=== PATIENT | female | born 1940 | race Caucasian/White ===

== ENCOUNTER 2020-01-06 19:25 | Inpatient (IN) | payer MEDICARE, OTHER ==
[~2020-01-06] VITALS: Ht 152.4 cm; Wt 51.7 kg
[2020-01-06] MEDS ORDERED: VISTARIL25 M2 PO (22:30)
[2020-01-06] MEDS ORDERED: VITAMIN D32000 UNI1 PO (22:31)
[2020-01-06] MEDS ORDERED: THEREMS-M1 EACH PO (22:31)
[2020-01-06] MEDS ORDERED: VERAPAMIL HCL40 MG PO (22:32)
[2020-01-06] MEDS ORDERED: XALATAN 0.005%2.5 ML INTRAOC (22:34)
[2020-01-06] MEDS ORDERED: LEVOTHYROXINE75 MCG PO (22:35)
--- NOTE | 2020-01-07 10:02 | NUR ---
DAISY BALDERAS a 79 year old F admitted via wheel chair from the ADMITTING as a voluntary admission. Arrived on unit at 1002. ALLERGIES: IODINE, EXELON AND CODEINE. Vital signs are: 97.4-88-16 150/71. The client signed the following forms with stated understanding: Authorization For The Release of Medical Information, Clothing List, Consent to Voluntary Admission and Hospitalization, Consent and Release Forms/Receipt of Rights, Acknowledgement of Advance Directive Information, Behavioral Health Consent Form, and Informed Consent of Medications. Admitted under the services of Dr. SAMMI ZEPEDA,[facility]. A search was conducted and hazardous articles were removed. Client was oriented to the unit. DELFINA ENAMORADO
[2020-01-07 11:00] VITALS: BP 150/71
--- NOTE | 2020-01-07 11:16 | NUR ---
SPOKE WITH DR LAKHANI AT [phone] RE: PT ADMISSION AND CONSULT NEEDED FOR MEDICAL MANAGEMENT PER DR PALACIOS CONSULT UNDER DR RASCON.
--- NOTE | 2020-01-07 11:41 | NUR ---
AM ASSESSMENT PT HAS JUST ARRIVED ON THE UNIT AND ASSESSMENT WAS ATTEMPTED. PT HAD SOME THOUGHT BLOCKING WITH SOME TEARFUL EPISODES. PT WAS EXPERIENCING VISUAL HALLUCINATIONS REACHING FOR AN UNSEEN OBJECT AND ASKING, "ARE YOU HOLDING THAT OR AM I?" WHEN ASKED WHAT SHE WAS SEEING, PT COULD NOT. PT WAS COOPERATIVE BUT UNABLE TO ANSWER MOST OF THE QUESTIONS.
[2020-01-07 12:55] LABS: BASO % 0.4 % (0.0-1.0); EOS # 0.2 10*3/uL (0.0-0.4); EOS % 2.3 % (1.0-4.0); HEMATOCRIT 38.9 % (37.0-47.0); HEMOGLOBIN 12.3 g/dl (12.0-16.0); LYMPH # 2.5 10*3/uL (1.3-4.4); LYMPH % 35.7 % (27.0-41.0); MEAN CELL VOLUME 95.1 fl (81.0-99.0); MEAN CORPUSCULAR HGB 30.1 pg (27.0-31.0); MEAN CORPUSCULAR HGB CONC 31.6 g/dl (33.0-37.0); MEAN PLATELET VOLUME 10.9 fl (9.6-12.3); MONO # 0.7 10*3/uL (0.1-1.0); MONO % 9.4 % (3.0-9.0); NEUT # 3.7 10*3/uL (2.3-7.9); NEUT % 52.1 % (47.0-73.0); PLATELET COUNT AUTOMATED 342 10*3/uL (130-400); RED BLOOD COUNT 4.09 10*6/uL (4.10-5.10); RED CELL DISTRI WIDTH 12.6 % (0-14.5); WHITE BLOOD COUNT 7.1 10*3/uL (4.8-10.8)
[2020-01-07 13:26] LABS: ALBUMIN 3.9 gm/dl (3.1-4.5); ALKALINE PHOSPHATASE 108 U/L (45-117); BUN 23 mg/dl (7-24); CHLORIDE 111 mmol/L (98-107); CREATININE 0.95 mg/dL (0.55-1.02); POTASSIUM 3.5 mmol/L (3.5-5.1); SGOT/AST 20 IU/L (3-35); SGPT/ALT 29 U/L (12-78); SODIUM 144 mmol/L (136-145); TOTAL PROTEIN 7.4 gm/dL (6.4-8.2)
[2020-01-07 15:25] LABS: VITAMIN D, 25-HYDROXY 41.1 ng/mL (30-100)
--- NOTE | 2020-01-07 15:46 | NUR ---
PM GROUP PT IS UNABLE TO ATTEND AND PARTICIPATE IN GROUP THERAPY. PT WAS IN BED RESTING.
--- NOTE | 2020-01-07 17:52 | NUR ---
P: ANXIOUS, CONSTANT MOVEMENT, PACING, ATTEMPTING TO EXIT, HITTING THE ENTRANCE DOOR, INTRUSIVE WITH OTHERS, TEARFUL AND FEARFUL AT TIMES. DEPRESSED MOOD. HAVING VISUAL HALLUCINATIONS STATING "DO YOU HAVE IT?" WITH HANDS IN THE AIR. I: ONE ON ONE, REDIRECTION, DIVERSIONAL ACTIVITIES, OFFERED RESTING PERIODS WHEN BECOMING SLEEPING, ENCOURAGED PATEINT TO EAT MEALS. R: SOME EFFECTIVE. PATIENT IS ALERT TO PERSON AND PLACE ([place]) WITH CONFUSION. SHORT ATTENTION SPAN. LONG/SHORT TERM MEMORY DEFICITS. MOOD IS DEPRESSED. NO VOICED STATEMENT OF HI/SI OR PAIN. RESPONDING TO INTERNAL STIMULI. 1 PERSON ASSIST WITH ACTIVITIES OF DAILY LIVING, CONTINENT OF BOWEL AND BLADDER. SET UP FOR MEALS, INTAKE ARE POOR WITH MUCH ENCOURAGEMENT. 200 CC OF ENSURE CONSUMED. NO AGGRESSION OBSERVED. MEDICATION COMPLAINT. Q 15 MINUTE SAFETY CHECK. P: CONTINUE TO MONITOR FOR AGGRRESSION, MEAL INTAKES, SLEEPING, HALLUCINATIONS. PROVIDE ONE ON ONE, REDIRECTION/ORIENTATION AND DIVERSIONAL ACTIVITIES NEEDED.
[2020-01-07 19:44] VITALS: BP 114/83
--- NOTE | 2020-01-07 20:30 | NUR ---
EVENING/LEISURE SKILLS PT IN ATTENDANCE ON AND OFF. PT WANDERING UNIT AT THIS TIME AND EXPRESSES NO AGITATION OR AGGRESSION AT THIS TIME.
--- NOTE | 2020-01-07 21:58 | NUR ---
P--CONFUSED, ANXIOUS I--TRIED TO GET CLIENT TO SIT AND EAT. NO EYE CONTACT. NONSENSICLE SPEECH. DIFFICULT TO REDIRECT SHE PULLS AWAY. MEDICATION PROVIDED WITHOUT SUCCESS. REFUSES TO LET STAFF LOCK UP RINGS ON HER LEFT HAND. R- SPIT PILLS OUT. REFUSED SNACK, UNABLE TO HOLD CONVERSATION. WANDERING IN AND OUT OF PEERS ROOMS. P--MONITOR FOR CHANGES IN BEHAVIOR/MOOD/ MONITOR Q 15 MINUTES AND PRN FOR SAFETY. PROVIDE EMOTIONAL SUPPORT
--- NOTE | 2020-01-08 03:24 | NUR ---
SHOWER GIVEN WITH HAIR WASHING. RINGS REMOVED AND TAKEN TO SUPERVISORS OFFICE. SLEEPING INTERMITTENTLY
--- NOTE | 2020-01-08 05:59 | NUR ---
24 HR chart check completed.
[2020-01-08 07:07] LABS: CHOLESTEROL 207 mg/dL (<200); HDL CHOLESTEROL 67 mg/dl (40-60); LDL CHOLESTEROL 121 mg/dL (9-159); TRIGLYCERIDES 94 mg/dl (<150); VLDL CHOLESTEROL 19 mg/dL (6-40)
[2020-01-08 08:00] VITALS: BP 140/80
--- NOTE | 2020-01-08 09:06 | NUR ---
DR ARGUELLES ON UNIT TO ASSESS PT, UPDATE PROVIDED.
--- NOTE | 2020-01-08 09:53 | NUR ---
TREATMENT PLAN MEETING WAS HELD WITH DR. CHAPA, LETHA CAMARA, RN, AT, DIRECTOR OF DIRECT MARKETING-S AND BUSINESS SERVICES SPECIALIST SALES. PLAN FOR DISCHARGE NEXT WEEK. DR. CHAPA ASKED FOR PASRR TO BE COMPLETED. WILL FOLLOW WITH THE [facility] [address] TODAY TO DISCUSS DISCHARGE PLANNING.
--- NOTE | 2020-01-08 10:29 | NUR ---
Attempted to engage pt in conversation this AM for completion of assessment. Pt did not respond appropriately to any questions. Pt did not want to be still sitting in a room but only wanted to wander the nguyen.
--- NOTE | 2020-01-08 10:32 | NUR ---
Family meeting held via the phone with pt's daughter/DPOAHC Dannielle Tiera. Dannielle stated that pt's change in behaviors began approximately 3 weeks ago. Pt has been on an anti-depressant for approximately 30 years but about a month ago pt became very weepy. There was a med change at that time. After the med change, pt became panicked and fearful pacing in the AL and having outbursts. Dannielle stated that pt normally wanders but not the frantic pacing that pt has been recently displaying. She also stated that pt is normally very gentle without behavioral outbursts. Discussed pt's stay at [facility]. Confirmed that Dannielle is wanting pt to return to The [facility] at [address] at time of [facility] discharge. Dannielle provided additional pt history. 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
--- NOTE | 2020-01-08 11:43 | NUR ---
AM GROUP PT WAS PRESENT FOR MORNING GROUP THERAPY SEATED IN A NAINA CHAIR WITH THE TRAY ON. PT WAS DROWSY AND UNABLE TO PARTICIPATE. PT LEVEL OF CONFUSION AND COGNITIVE IMPAIRMENT AT THIS TIME IS HIGH. PT EXHIBITED NO AGITATION OR AGGRESSION WHILE IN THE DAYROOM.
--- NOTE | 2020-01-08 15:42 | NUR ---
PM GROUP PT WAS PRESENT FOR AFTERNOON GROUP THERAPY SEATED IN A NAINA CHAIR WITH THE TRAY ON. PT WAS IN AND OUT OF SLEEP AT THE BEGINNING BUT BEGAN FIDGETING WITH THE TRAY. PT WAS GIVEN AN ACTIVITY BUT WAS UNABLE TO DO IT DUE TO COGNITIVE IMPAIRMENT. PT EXHIBITED NO AGGRESSION BUT WAS BECOMING INCREASINGLY UPSET WITH THE TRAY.
[2020-01-08 19:48] VITALS: BP 142/72
--- NOTE | 2020-01-09 00:30 | NUR ---
P-CONFUSION I-PROVIDED 1:1 WITH THERAPEUTIC INTERVENTIONS. REORIENTED AND PRESENTED WITH REALITY. ENCOURAGE MEDICATION COMPLIANCE AND EDUCATE. MONITOR SLEEP. R-PT ALERT TO SELF, ISOLATIVE. SPEECH NONSENSICAL WITH INTERACTIONS. MILD IRRITABILITY NOTED DURING MEDICATION PASS BUT OTHERWISE CALM. MEDICATION COMPLIANT WITH ENCOURAGEMENT WHEN CRUSHED IN PUDDING. UNABLE TO EDUCATE DUE TO COGNITION. NO NOTED RESPONDING TO INTERNAL STIMULI. PT VOICES NO SI/HI OR PAIN. PT ASSIST X1 WITH CARE. INCONTINENT/CONTINENT OF BOWEL AND BLADDER. CURRENTLY LAYING DOWN WITH EYES CLOSED, RESPIRATIONS EASY AND REGULAR, NO SIGNS OR SYMPTOMS OF DISTRESS NOTED. P-CONTINUE TO MONITOR MOOD AND BEHAVIORS. MAINTAIN Q 15 MIN CHECKS.
--- NOTE | 2020-01-09 04:18 | NUR ---
24 HOUR CHART CHECK COMPLETED.
--- NOTE | 2020-01-09 05:30 | NUR ---
PATIENT OBSERVED ON Q 15 MIN CHECKS TO HAVE SLEPT APPROX 4 HOURS INTERRUPTED. NO SIGNS OR SYMPTOMS OF DISTRESS NOTED.
[2020-01-09 08:00] VITALS: BP 145/69
--- NOTE | 2020-01-09 09:00 | NUR ---
TREATMENT PLAN MEETING WAS HELD WITH DR. CHAPA, RN, AT, [facility] AND COUNSELING SERVICES DIRECTOR. PLAN FOR DISCHARGE AT THE END OF NEXT WEEK. PT. WILL RETURN TO THE [facility] AT [facility].
--- NOTE | 2020-01-09 11:48 | NUR ---
AM GROUP PT WAS PRESENT FOR MORNING GROUP THERAPY BUT IS UNABLE TO PARTICIPATE DUE TO COGNITIVE IMPAIRMENT. PT ATTEMPTED CONVERSATION BUT SPEECH IS LOW AND NONSENSICAL. PT EXHIBITED NO AGITATION OR AGGRESSION WHILE IN GROUP.
--- NOTE | 2020-01-09 17:36 | NUR ---
DEPAKOTE DOSE VERIFIED WITH : DEPAKOTE SPRINKLES 250MG IN AM AND 500MG AT HS. WITNESSED BY 2ND RN TERE.ELINOR.
[2020-01-09 20:00] VITALS: BP 148/78
--- NOTE | 2020-01-09 22:05 | NUR ---
PT STRAIGHT CATHED USING STERILE TECHNIQUE FOR UA ORDERED BY PHYSICIAN . PT TOLERATED PROCEDURE WELL.
[2020-01-09 22:32] LABS: BILIRUBIN NEGATIVE (NEGATIVE); BLOOD TRACE-INTACT (NEGATIVE); CLARITY CLEAR (CLEAR); COLOR YELLOW (YELLOW); GLUCOSE NEGATIVE (NEGATIVE); KETONE 3+ (NEGATIVE); LEUKO ESTERASE NEGATIVE (NEGATIVE); NITRITE NEGATIVE (NEGATIVE); UROBILINOGEN 0.2 E.U./dl (0.2-1.0)
--- NOTE | 2020-01-09 22:32 | NUR ---
PT SOMNOLENT THIS HS, EASILY AROUSABLE VIA TACTILE AND VERBAL STIMULI, CONFUSED, NONSENSICAL. PT REFUSING HS MEDICATIONS OR SNACK, UNABLE TO REDIRECT DUE TO COGNITION. VITALS WNL, NO OVERT DISTRESS NOTED. ALL NEEDS ANTICIPATED BY STAFF, MILD AGITATION NOTED DURING HOC, ASSIST X2. NO COMBATIVE OR ADVERSE BEHAVIORS OBSERVED. PT RESTING QUIETLY AT THIS TIME, RESPIRATIONS EASY AND REGULAR, NO C/O DISCOMFORT NOTED. PLAN IS TO CONTINUE TO MONITOR MOOD AND BEHAVIORS. MAINTAIN Q 15 MIN CHECKS AND PRN FOR SAFETY.
--- NOTE | 2020-01-10 05:24 | NUR ---
PATIENT OBSERVED ON Q 15 MIN SAFETY CHECKS TO HAVE SLEPT APPROX 7 HOURS WITH BRIEF AWAKENINGS DURING STAFF CHECKS AND REPOSITIONING. INCONTINENT CARE PROVIDED WITHOUT DIFFICULTY. NO SIGNS OR SYMPTOMS OF DISTRESS NOTED.
[2020-01-10 07:40] VITALS: BP 159/88
[2020-01-10 08:12] LABS: BASO # 0.1 10*3/uL (0.0-0.1); BASO % 0.4 % (0.0-1.0); EOS # 0.1 10*3/uL (0.0-0.4); EOS % 0.9 % (1.0-4.0); HEMATOCRIT 36.4 % (37.0-47.0); HEMOGLOBIN 11.9 g/dl (12.0-16.0); LYMPH # 1.5 10*3/uL (1.3-4.4); MEAN CELL VOLUME 94.5 fl (81.0-99.0); MEAN CORPUSCULAR HGB 30.9 pg (27.0-31.0); MEAN CORPUSCULAR HGB CONC 32.7 g/dl (33.0-37.0); MEAN PLATELET VOLUME 11.1 fl (9.6-12.3); MONO # 1.2 10*3/uL (0.1-1.0); MONO % 9.4 % (3.0-9.0); NEUT # 9.7 10*3/uL (2.3-7.9); PLATELET COUNT AUTOMATED 341 10*3/uL (130-400); RED BLOOD COUNT 3.85 10*6/uL (4.10-5.10); RED CELL DISTRI WIDTH 12.7 % (0-14.5); WHITE BLOOD COUNT 12.6 10*3/uL (4.8-10.8)
[2020-01-10 08:28] LABS: ALBUMIN 3.3 gm/dl (3.1-4.5); ALKALINE PHOSPHATASE 97 U/L (45-117); BUN 23 mg/dl (7-24); CHLORIDE 113 mmol/L (98-107); CREATININE 0.87 mg/dL (0.55-1.02); POTASSIUM 3.5 mmol/L (3.5-5.1); SGOT/AST 19 IU/L (3-35); SGPT/ALT 24 U/L (12-78); SODIUM 144 mmol/L (136-145); TOTAL PROTEIN 6.8 gm/dL (6.4-8.2)
--- NOTE | 2020-01-10 08:51 | NUR ---
AM DEPAKOTE DOSE DECREASED TO 125MG PER H.CLEVE PMHNP-BC
--- NOTE | 2020-01-10 10:13 | NUR ---
TREATMENT PLAN MEETING WAS HELD WITH LETHA CAMARARN, AT, FILLER SHREDDER-S AND ULTIMATE HOOPS SCOREBOARD OPERATOR. PLAN FOR DISCHARGE NEXT WEEK, POSSIBLE MONDAY WITH RETURN TO THE [facility] AT [facility].
--- NOTE | 2020-01-10 10:37 | NUR ---
SPOKE WITH FRANCISCO THE NURSE IN THE MEMORY CARE UNIT AT THE [facility] AT [facility]. NOTIFIED OF PLANS TO DISCHARGE NEXT WEEK. CLINICAL UPDATES FAXED TO FACILITY ATTN; NURSE [phone].
--- NOTE | 2020-01-10 12:02 | NUR ---
UPDATED DOCTOR KINDRA WITH LABS AND URINE RESULTS NO NEW ORDERS AT THIS TIME
--- NOTE | 2020-01-10 12:31 | NUR ---
AM GROUP PT WAS PRESENT FOR MORNING GROUP THERAPY RECLINED IN A NAINA CHAIR SLEEPING. PT WOKE TOWARDS THE END OF GROUP DISTRAUGHT AND TRYING TO CLIMB OUT OF THE CHAIR. MHW TOOK PT AND WALKED HER IN THE HALLWAY. PT WAS COMFORTED AND CALMED.
--- NOTE | 2020-01-10 15:27 | NUR ---
P- ANXIOUS MOOD - WITH PERIODS OF YELLING OUT I-1;1, TALK WITH PT - OFFER FLUIDS AND SNACK, ENCOURAGE MEDICATION COMPLIANCE,MONITOR Q 15 MIN SAFETY CHECKS WITH BEHAVIOR INTERVENTION,AMBULATED PT TO REDUCE ANXIETY R- PT IS RELAXED WITH 1;1 AND FLUIDS AND AMBULATION P- CONTINUE 1;1, OFFER FLUIDS ,SNACKS,AMBULATION Q15MIN AFETY CHECKS,MEDICATION COMPLIANCE SEE [facility] FLOWSHEETFOR SPECIFIC MONITORING
--- NOTE | 2020-01-10 15:33 | NUR ---
PM GROUP PT WAS PRESENT FOR AFTERNOON GROUP THERAPY BUT IS UNABLE TO PARTICIPATE AT THIS TIME DUE TO COGNITIVE IMPAIRMENT. PT EXHIBITED NO AGITATION OR AGGRESSION WHILE IN GROUP
[2020-01-10 20:00] VITALS: BP 110/52
--- NOTE | 2020-01-11 04:31 | NUR ---
P-CONFUSION, TEARFUL, ISOLATIVE I-REDIRECTION WITH THERAPEUTIC INTERVENTIONS AND PRESENT REALITY. EDUCATE AND ENCOURAGE MEDICATION COMPLIANCE R-PATIENT MEDICATION COMPLIANT WITH ENCOURAGEMENT. PATIENT WITH NONSENSICAL SPEECH THROUGHOUT SHIFT. PATIENT WITH BRIEF EPSISODES OF TEARFULLNESS. PATIENT PROVIDED NOURISHEMENT AND FLUIDS AT HS. PATIENT WITH NO SUICIDAL OR HOMICIDAL IDEATIONS. PATIENT WITH NO HALLUCINATIONS OR DELUSIONS. P-CONTINUE TO ENCOURAGE MEDICATION COMPLIANCE, CONTINUE TO ENCOURAGE REALITY, ENCOURAGE GROUP THEAPY WHILE AWAKE
--- NOTE | 2020-01-11 06:14 | NUR ---
PATIENT SLEPT 8 HOURS UNINTERRUPTED SLEEP THROUGHOUT SHIFT. Q 15 MINUTE CHECKS MAINTAINED. 24 HR chart check completed. PATIENT SKIN ASSESSED AT HS WITH NO AREAS NOTED
[2020-01-11 08:00] VITALS: BP 111/69
--- NOTE | 2020-01-11 11:12 | NUR ---
P-NON SENSABLE SPEECH I- 1;1 ,ENCOURAGE MEDICATION COMPLIANCE, ENCOURAGE GROUP ATTENDANCE R- INTERACTIVE WITH STAFF AND PEERS PARTICIPATES AND ATTENDS GROUP P-CONTINUE WITH 1;1 MEDICATION COMPLIANCE, ENCOURAGE ATTENDANCE TO GROUP AND PARTICIPATION Q 15 MIN SAFETY CHECKS SEE [facility] NOTES FOR BEHAVIOR MONITORING
--- NOTE | 2020-01-11 11:37 | NUR ---
AM GROUP/LEISURE SKILLS PT IN ATTENDNACE BUT RESTING ENTIRE TIME.
--- NOTE | 2020-01-11 15:50 | NUR ---
PM GROUP/LEISURE SKILLS PT RESTING IN CHAIR AT THIS TIME.
[2020-01-11 20:00] VITALS: BP 125/66
--- NOTE | 2020-01-12 01:52 | NUR ---
P-CONFUSION, ISOLATIVE I-REDIRECTION WITH THERAPEUTIC INTERVENTIONS AND PRESENT REALITY. EDUCATE AND ENCOURAGE MEDICATION COMPLIANCE R-PATIENT MEDICATION COMPLIANT WITHOUT DIFFICULTY. PATIENT WITH NONSENSICAL SPEECH THROUGHOUT SHIFT. PATIENT REFUSED NOURISHEMENT AT HS BUT PROVIDED FLUIDS. PATIENT WITH NO SUICIDAL OR HOMICIDAL IDEATIONS. PATIENT WITH NO HALLUCINATIONS OR DELUSIONS. PATIENT WITH INCREASED ANXIETY AT TIMES AND ATTEMPTING TO GET UP WITHOUT ASSISTANCE. P-CONTINUE TO ENCOURAGE MEDICATION COMPLIANCE, CONTINUE TO ENCOURAGE REALITY, ENCOURAGE GROUP THEAPY WHILE AWAKE
--- NOTE | 2020-01-12 06:13 | NUR ---
PATIENT SLEPT 8 HOURS UNINTERRUPTED THROUGHOUT SHIFT. Q 15 MINUTE CHECKS MAINTAINED. 24 HR chart check completed. NO CHANGE IN SKIN INTEGRITY ON ASSESSMENT THIS SHIFT
[2020-01-12 07:53] VITALS: BP 110/64
[2020-01-12 10:41] LABS: BASO % 0.3 % (0.0-1.0); EOS # 0.1 10*3/uL (0.0-0.4); EOS % 1.7 % (1.0-4.0); HEMATOCRIT 38.8 % (37.0-47.0); HEMOGLOBIN 12.3 g/dl (12.0-16.0); LYMPH # 1.1 10*3/uL (1.3-4.4); LYMPH % 16.8 % (27.0-41.0); MEAN CELL VOLUME 93.9 fl (81.0-99.0); MEAN CORPUSCULAR HGB 29.8 pg (27.0-31.0); MEAN CORPUSCULAR HGB CONC 31.7 g/dl (33.0-37.0); MEAN PLATELET VOLUME 11.2 fl (9.6-12.3); MONO # 0.7 10*3/uL (0.1-1.0); MONO % 11.5 % (3.0-9.0); NEUT # 4.4 10*3/uL (2.3-7.9); NEUT % 69.4 % (47.0-73.0); PLATELET COUNT AUTOMATED 348 10*3/uL (130-400); RED BLOOD COUNT 4.13 10*6/uL (4.10-5.10); RED CELL DISTRI WIDTH 12.3 % (0-14.5); WHITE BLOOD COUNT 6.4 10*3/uL (4.8-10.8)
[2020-01-12 10:44] LABS: ALBUMIN 3.2 gm/dl (3.1-4.5); ALKALINE PHOSPHATASE 94 U/L (45-117); BUN 20 mg/dl (7-24); CHLORIDE 112 mmol/L (98-107); POTASSIUM 3.5 mmol/L (3.5-5.1); SGOT/AST 17 IU/L (3-35); SGPT/ALT 25 U/L (12-78); SODIUM 144 mmol/L (136-145); TOTAL PROTEIN 6.9 gm/dL (6.4-8.2)
--- NOTE | 2020-01-12 11:13 | NUR ---
P- ZERO BEAHVIOR I- 1;1 ENCOURAGE GROUP ATTENDENCE AND PARTICIPATION Q15 MIN SAFETY CHECKS R- RESPONDS SLOW TO STAFF AND PEERS 1;1 ATTENDS GROUP P- CONTINUE 1;1 Q 15 MIN SAFETY CHECKS GIVE PT TIME TO RESPOND SEE [facility] NOTES FOR BEHAVIOR MONITORING
--- NOTE | 2020-01-12 12:02 | NUR ---
AM GROUP/EXERCISE/BRAIN GAMES PT IN ATTENDANCE BUT RESTING IN RECLINER WITH BABY DOLL ENTIRE TIME.
[2020-01-12 20:00] VITALS: BP 174/53
--- NOTE | 2020-01-13 03:53 | NUR ---
PATIENT ALERT WITH CONFUSION. PATIENT WITH SHORT TERM AND DOMESTIC VIOLENCE COUNSELOR MEMORY DEFICITS. PATIENT WITH NO RESPIRTATORY DISTRESS. PATIENT WITH NONSENSICAL SPEECH AT TIMES DURING SHIFT. PATIENT WITH NO HOMICIDAL OR SUICIDAL IDEATIONS. PATIENT WITH NO HALLUCINATIONS OR DELUSIONS. PATIENT REFUSED NOURISHEMENT AT HS BUT PROVIDED FLUIDS. PATIENT MEDICATION COMPLIANT AT HS. PATIENTS WITH NO BEHAVIORS AT THIS TIME. SEE [facility] FLOW SHEET FOR SPECIFIC MONITORING.
--- NOTE | 2020-01-13 05:40 | NUR ---
PATIENT SLEPT 8 HOURS OF UNINTERRUPTED SLEEP THROUGHOUT SHIFT. Q 15 MINUT CHECKS MAINTAINED. 24 HR chart check completed. NO CHANGES IN SKIN INTEGRITY THIS SHIFT
[2020-01-13 08:00] VITALS: BP 142/62
--- NOTE | 2020-01-13 09:40 | NUR ---
TREATMENT PLAN MEETING WAS HELD WITH LETHA CAMARA RN, CORE MOUNTER-S AND RETAIL SALES ADVISOR. PLAN FOR DISCHARGE WHEN STABLE WITH RETURN TO THE [facility] AT [facility].
--- NOTE | 2020-01-13 09:50 | NUR ---
DR. ALY ON UNIT TO ASSESS PATIENT.
--- NOTE | 2020-01-13 11:12 | NUR ---
P: WITHDRAWN WITH FLAT AFFECT, POOR PO INTAKES. I: ONE ON ONE, ENCOURAGE INTERACTION WITH STAFF, EATING MEALS WITH STAFF ASSISTANCE. R: PATIENT RESTING IN NAINA WITH EYES CLOSED WHILE IN GROUP, WATCHING MOVIE. PATIENT DID NOT WANT TO EAT. MUCH ASSISTANCE WITH ENSURE DRINK. PATIENT DRANK ALL OF ENSURE, 240CC. PATIENT IS ALERT TO PERSON WITH CONFUSION. LONG/SHORT TERM MEMORY DEFICITS. 1 PERSON ASSIST WITH ACTIVITIES OF DAILY LIVING. INCONTINENT OF BOWEL AND BLADDER. SET UP FOR MEALS, WITH STAFF ASSISTANCE. MEDICATION COMPLAINT. Q 15 MINUTE SAFETY CHECKS MAINTAINED. NO ANXIETY OR AGGRESSION OBSERVED. P: CONTINUE TO MONITOR FOR AGGRESSION, MEDICATION COMPLIANCE, MOOD, SLEEPING PATTERN AND MEAL INTAKES. PROVIDE ONE ON ONE, REDIRECTION, ENCOURAGEMENT OF MEALS AND FLUIDS. ENCOURAGE INTERACTION WITH STAFF AND OTHER PATIENTS.
[2020-01-13 14:01] VITALS: BP 124/69
--- NOTE | 2020-01-13 15:09 | NUR ---
Shift chart check completed.
[2020-01-13 19:35] VITALS: BP 146/62
--- NOTE | 2020-01-13 21:19 | NUR ---
24 HR chart check completed.
--- NOTE | 2020-01-13 21:30 | NUR ---
P-CONFUSION, ANXIOUS I-REORIENT, PROVIDE VERBAL REASSURANCE, ASSIST WITH PHYSICAL NEEDS, ADMINISTER MEDS, MONITOR SLEEP R-ALERT TO PERSON ONLY, MILD ANXIETY, CALMS WITH REASSURANCE, REQUIRES 2 STAFF ASSISTS, INCONTINENT OF URINE. REQUIRED ENCOURAGEMENT TO TAKE FLUIDS & EAT SNACK. COMPLIANT TAKING MEDS CRUSHED & MIXED IN APPLESAUCE. P-CONTINUE TO MONITOR. PROVIDE PHYSICAL ASSISTANCE & EMOTIONAL SUPPORT NEEDED.
--- NOTE | 2020-01-14 06:08 | NUR ---
PT HAS SLEPT PAST 5 WITH INTERMITTENT AWAKENINGS. SLEPT APPX 5 HOURS
[2020-01-14 08:05] VITALS: BP 124/60
--- NOTE | 2020-01-14 09:00 | NUR ---
TREATMENT PLAN MEETING WAS HELD WITH DR. CHAPA, LETHA CAMARA, RN, AT, TITLE SUPERVISOR-S AND CERAMIC WORKER. PLAN FOR DISCHARGE MONDAY. PT. WILL RETURN TO THE [facility].
--- NOTE | 2020-01-14 11:35 | NUR ---
AM GROUP/EXERCISE AND [place] PT WAS PRESENT FOR MORNING GROUP THERAPY BUT IS UNABLE TO PARTICIPATE AT THIS TIME DUE COGNITIVE IMPAIRMENT. PT HAD A DRINK OF WATER AND SAT AND OBSERVED.
--- NOTE | 2020-01-14 11:36 | NUR ---
Received a voicemail message from pt's daughter/DPOAHC Dannielle Tiera expressing concern about pt's current status. Returned the message leaving a voicemail for Dannielle informing her that this abstract writer is requesting that Dr Benjamin or Samantha Amado CELLULAR BIOLOGIST contact Dannielle to discuss plan for pt.
--- NOTE | 2020-01-14 14:14 | NUR ---
PATIENT HAS BEEN ASSISTED TO BATHROOM 3-4 TIMES DUE TO REQUEST AND INSISTING ON NEEDED TO URINATE. EACH TIME PATIENT DID NOT VOID, HAVING URENCY WITHOUT VOIDING, NO COMPLAINTS OF BURNING. TEMP 97.5. DR. PATEL NOTIFIED. BLADDER SCAN PER REQUEST. NO CC OF URINE NOTED. RENOTIFIED DR. PATEL. NO ORDER FOR UA/C&S. URINE COLLECTED VIA CLEAN CATCH AND SENT TO LAB.
[2020-01-14 14:19] LABS: BILIRUBIN NEGATIVE (NEGATIVE); BLOOD NEGATIVE (NEGATIVE); CLARITY CLOUDY (CLEAR); COLOR YELLOW (YELLOW); GLUCOSE NEGATIVE (NEGATIVE); KETONE 1+ (NEGATIVE); SPECIFIC GRAVITY 1.015 (1.005-1.030)
[2020-01-14 14:20] LABS: LEUKO ESTERASE 1+ (NEGATIVE); NITRITE NEGATIVE (NEGATIVE); PH 6.5 (5.0-9.0); UROBILINOGEN 0.2 E.U./dl (0.2-1.0)
[2020-01-14 14:25] LABS: RBC 0-2 rbc/hpf (0-2); WBC 16-20 wbc/hpf (0-5)
[2020-01-14 14:26] LABS: BACTERIA 4+; MUCOUS TRACE
--- NOTE | 2020-01-14 15:36 | NUR ---
PM GROUP/CRAFTS PT DID NOT ATTEND AFTERNOON GROUP THERAPY. PT WAS IN BED RESTING.
--- NOTE | 2020-01-14 15:53 | NUR ---
DR. PATEL NOTIFIED OF UA RESULTS.
--- NOTE | 2020-01-14 15:55 | NUR ---
P: ANXIOUS AT TIMES. I: ONE ON ONE, REDIRECTION NEEDED R: EFFECTIVE. PATIENT IS ALERT TO PERSON WITH CONFUSION. LONG/SHORT TERM MEMORY DIFICITS. MOOD IS ANXIOUS WITH FLAT AFFECT. NO RESPONSE TO INTERNAL STIMULI OBSERVED. NO VOICED STATEMENT OF HI/SI OR PAIN. MEDICATION COMPLAINT. Q 15 MINUTE SAFETY CHECKS MAINATINED. ONE PERSON ASSIST WITH ACTIVITIES OF DAILY LIVING, CONTINENT OF BOWEL AND BLADDER. SET UP FOR MEALS. MUCH ENCOURAGEMENT TO EAT AND DRINK. POOR INTAKES. UP IN MERRIWALKER AMBULATING IN HALLWAY. FREQUENT REST PERIODS OFFERED. NO AGGRESSION OBSERVED. P: CONTINUE TO MONITOR MOOD, MEAL INAKES AND SLEEPING PATTERN. PROVIDE ONE ON ONE, REDIRECTION, ENCOURAGE MEAL INTAKE AND ASSIST AND ENCOURAGE PATIENT TO REST NEEDED.
[2020-01-14 19:39] VITALS: BP 126/62
--- NOTE | 2020-01-14 19:51 | NUR ---
24 HR chart check completed.
--- NOTE | 2020-01-14 21:35 | NUR ---
P-CONFUSION, ANXIOUS I-REORIENT, REDIRECT, ASSIST WITH PHYSICAL NEEDS, ADMINISTER MEDS, MONITOR SLEEP R-ALERT TO PERSON ONLY, MILD ANXIETY, CALMS WITH REASSURANCE, REQUIRES 2 STAFF ASSISTS, INCONTINENT OF URINE. REQUIRED ENCOURAGEMENT TO TAKE FLUIDS & EAT SNACK. COMPLIANT TAKING MEDS CRUSHED & MIXED IN APPLESAUCE. HAS MOVED ABOUT THE UNIT INDEPENDENTLY WITH A MERRY WALKER BUT REQUIRES REDIRECTION. P-CONTINUE TO MONITOR. PROVIDE PHYSICAL ASSISTANCE & EMOTIONAL SUPPORT NEEDED.
--- NOTE | 2020-01-15 06:12 | NUR ---
PT HAS SLEPT FOR 8 HOURS
[2020-01-15 07:40] VITALS: BP 117/63
--- NOTE | 2020-01-15 08:30 | NUR ---
TREATMENT PLAN MEETING WAS HELD WITH DR. CHAPA, LETHA CAMARA, RN, AT, COMBINER OPERATOR-S AND RESIN REMOVER. PLAN FOR DISCHARGE MONDAY WITH RETURN TO THE [facility] AT [facility].
--- NOTE | 2020-01-15 11:33 | NUR ---
AM GROUP/MUSIC AND ART PT WAS PRESENT FOR MORNING GROUP THERAPY BUT IS UNABLE TO PARTICIPATE AT THIS TIME DUE TO COGNITIVE IMPAIRMENT. PT SAT AT A TABLE NAPPING.
--- NOTE | 2020-01-15 13:17 | NUR ---
CLINICAL UPDATES FAXED TO THE [facility] [address] ATTN: JUANY GARAY NURSE [phone].
--- NOTE | 2020-01-15 14:40 | NUR ---
Family meeting held on 01/14/20 with pt's daughter Dannielle Mott and her . Discussed pt's status during past few days and currently. Pt's family expressed concern about understanding the course of pt's treatment. Informed them that Samantha Amado REVERBERATORY SKIMMER would be phoning Dannielle to discuss current medications and plan of care. Pt's family expressed concern that pt was not yet stable to return to the assisted living. Discussed this further and reassured pt's family that their concerns would be discussed in treatment team tomorrow.
--- NOTE | 2020-01-15 15:35 | NUR ---
PM GROUP/CRAFTS PT DID NOT ATTEND AFTERNOON GROUP THERAPY. PT WAS IN BED RESTING.
--- NOTE | 2020-01-15 16:06 | NUR ---
SPOKE WITH JUANY THE NURSE AT THE [facility]. THE [facility] FEELS THAT PATIENT SHOULD NOT DISCHARGE MONDAY AND SHOULD BE DISCHARGED NEXT WEEK DUE TO UPDATES THAT WERE FAXED TO THEM, PATIENT DID NOT SHOW IMPROVEMENT AND FAMILY HAS CONCERNS ABOUT DISCHARGING TOO EARLY AND PATIENT ENDING UP READMIITED TO THE HOSPITAL.
--- NOTE | 2020-01-15 18:54 | NUR ---
DR. AGUILAR NOTIFIED OF UA RESULTS.
[2020-01-15 19:26] VITALS: BP 118/64
--- NOTE | 2020-01-15 19:33 | NUR ---
P: ANXIOUS AT TIMES. I: ONE ON ONE, REDIRECTION NEEDED R: EFFECTIVE. PATIENT IS ALERT TO PERSON WITH CONFUSION. LONG/SHORT TERM MEMORY DIFICITS. MOOD IS ANXIOUS WITH FLAT AFFECT. NO RESPONSE TO INTERNAL STIMULI OBSERVED. NO VOICED STATEMENT OF HI/SI OR PAIN. MEDICATION COMPLAINT. Q 15 MINUTE SAFETY CHECKS MAINATINED. ONE PERSON ASSIST WITH ACTIVITIES OF DAILY LIVING, CONTINENT OF BOWEL AND BLADDER. SET UP FOR MEALS. MUCH ENCOURAGEMENT TO EAT AND DRINK. POOR INTAKES. AMBULATING ON UNIT WITH STAFF. FREQUENT REST PERIODS OFFERED. NO AGGRESSION OBSERVED. P: CONTINUE TO MONITOR MOOD, MEAL INAKES AND SLEEPING PATTERN. PROVIDE ONE ON ONE, REDIRECTION, ENCOURAGE MEAL INTAKE AND ASSIST AND ENCOURAGE PATIENT TO REST NEEDED.
--- NOTE | 2020-01-15 21:05 | NUR ---
PT IN DINING ROOM WITH PEERS. NO c/o discomfort. Respirations easy and regular. Vital signs stable. No overt distress. TREVON EPPS
--- NOTE | 2020-01-15 23:12 | NUR ---
CONFUSION REDIRECTION AND REORIENTATION PROVIDED. EDUCATE AND ENCOURAGE MEDICATION COMPLIANCE PATIENT MEDICATION COMPLIANT WITHOUT DIFFICULTY. NO OVERT HALLUCINATIONS OR DELUSIONS. PT MOSTLY DROWSY, ASSISTED TO BED SHORTLY AFTER MEDICATION ADMINISTRATION. CONTINUE TO ENCOURAGE MEDICATION COMPLIANCE, CONTINUE TO REORIENT AND REDIRECT NEEDED. Q15 MIN MONITORING PER POLICY
--- NOTE | 2020-01-16 05:29 | NUR ---
PT SLEPT 7 HOURS THIS SHIFT
[2020-01-16 07:31] VITALS: BP 140/85
--- NOTE | 2020-01-16 08:50 | NUR ---
DR ARGUELLES ON UNIT TO ASSESS PT, UPDATE PROVIDED.
--- NOTE | 2020-01-16 09:00 | NUR ---
TREATMENT PLAN MEETING WAS HELD WITH DR. CHAPA, RN, AT, [facility]-S AND UNMANNED EQUIPMENT OPERATOR. PLAN FOR DISCHARGE NEXT WEEK. PT. TO RETURN TO THE [facility] [address] AT DISCHARGE.
--- NOTE | 2020-01-16 10:26 | NUR ---
P: PT RESTLESS AND PACING AT TIMES, CONFUSION AND SHORT TERM MEMORY DEFICITS I: PROVIDE EMOTIONAL SUPPORT AND 1:1 FOR PT TO VOICE FEELINGS, ENCOURAGE GROUP PARTICIPATION AND SOCIALIZATION, PROVIDE DIVERSIONAL ACTIVITIES, RE-ORIENT AND PRESENT REALITY R: PT ALERT TO PERSON ONLY, CONFUSION AND SHORT TERM MEMORY DEFICITS NOTED PER PT BASELINE. PT REMAINS RESTLESS AT TIMES. PT MED COMPLIANT WITHOUT DIFFICUTLY, UNABLE TO PROVIDE MED EDUCATION D/T COGNITION. PT AMBULATORY THROUGHOUT UNIT, GAIT STEADY. PT CONTINENT OF BOWEL AND BLADDER, EPISODES OF INCONTINENCE NOTED, CARE PROVIDED NEEDED. P: MONITOR PT BEHAVIORS ON Q15 MIN SAFETY CHECKS, ENCOURAGE MED COMPLIANCE, PROVIDE EMOTIONAL SUPPORT AND 1:1 FOR PT TO VOICE FEELINGS, ENCOURAGE GROUP PARTICIPATION AND SOCIALIZATION, PROVIDE DIVERSIONAL ACTIVITES, RE-ORIENT AND PRESENT REALITY WITH EACH INTERACTION AND NEEDED.
--- NOTE | 2020-01-16 15:46 | NUR ---
PM GROUP PT DID NOT ATTEND AFTERNOON GROUP THERAPY.PT WAS IN BED RESTING.
[2020-01-16 20:00] VITALS: BP 112/72
--- NOTE | 2020-01-16 21:50 | NUR ---
Patient alert to person only with confusion noted. Memory deficits noted. No over s/s of any responding to internal stimuli noted at this time. Mood calm and cooperative. Patient isolative to room this evening. Patient compliant with HS medications without any difficulty. Provided 1:1 for emotional support. Redirected/reoriented when needed. Plan to continue to encourage medication compliance. Also continue to offer emotional support and continue to redirect/reorient when needed/appropriate. Q 15 minute safety checks continued and maintained. Will monitor moods/behaviors. See [facility] flowsheet for further documentation.
--- NOTE | 2020-01-17 00:22 | NUR ---
24 HR chart check completed.
--- NOTE | 2020-01-17 05:44 | NUR ---
Patient slept approx. 9 hours throughout shift. Q 15 minute safety checks continued and maintained.
[2020-01-17 07:50] VITALS: BP 110/76
--- NOTE | 2020-01-17 09:00 | NUR ---
TREATMENT PLAN MEETING WAS HELD WITH LETHA CAMARA, RN, AT, [facility]. PLAN FOR DISCHARGE NEXT WEEK. PT. WILL RETURN TO THE [facility].
--- NOTE | 2020-01-17 11:58 | NUR ---
AM GROUP PT DID NOT ATTEND MORNING GROUP THERAPY. PT WAS PROPELLING SELF AROUND THE UNIT IN THE [employer] [facility].
--- NOTE | 2020-01-17 15:00 | NUR ---
Met with pt's daughter Dannielle and provided an update about pt. Informed Dannielle that Vistaril had been prescribed. Dannielle commented that she just doesn't want her mother to be so anxious and appearing fearful.
--- NOTE | 2020-01-17 15:03 | NUR ---
Left a message for Tl at The [facility] [address] requesting a return call to discuss pt using a merrywalker when she returns there. Await return call.
--- NOTE | 2020-01-17 15:40 | NUR ---
PM GROUP PT DID NOT ATTEND AFTERNOON GROUP THERAPY.PT WAS IN THE MERRY WALKER OR IN BED NAPPING.
[2020-01-17 19:56] VITALS: BP 126/70
--- NOTE | 2020-01-18 02:21 | NUR ---
PATIENT ALERT WITH CONFUSION. 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 PATIENT WITH NO RESPIRTATORY DISTRESS. PATIENT WITH NO HOMICIDAL OR SUICIDAL IDEATIONS. PATIENT WITH NO HALLUCINATIONS OR DELUSIONS. PATIENT MEDICATION COMPLIANT AT HS. PATIENTS WITH NO BEHAVIORS AT THIS TIME. SEE [facility] FLOW SHEET FOR SPECIFIC MONITORING.
--- NOTE | 2020-01-18 05:53 | NUR ---
PATIENT SLEPT 7 HOURS OF INTERRUPTED SLEEP THROUGHOUT SHIFT. Q 15 MINUTE CHECKS MAINTAINED. 24 HR chart check completed.
[2020-01-18 08:00] VITALS: BP 116/74
--- NOTE | 2020-01-18 08:42 | NUR ---
Patient ambulating t/o unit in merry walker with no c/o discomfort. Respirations easy and regular. Vital signs stable. No overt distress. TREVON EPPS
--- NOTE | 2020-01-18 11:57 | NUR ---
AM GROUP/EXERCISE/LEISURE SKILLS PT NOT IN ATTENDNACE AT THIS TIME DUE TO SLEEPING IN ROOM.
--- NOTE | 2020-01-18 12:21 | NUR ---
CONFUSION. PT AMBULATING WITH MERRY WALKER AT [facility]. REDIRECTION AND REORIENTATION PROVIDED. EDUCATE AND ENCOURAGE MEDICATION COMPLIANCE. PT ENCOURAGED TO TAKE FREQUENT REST PERIODS PATIENT MEDICATION COMPLIANT WITHOUT DIFFICULTY. NO OVERT HALLUCINATIONS OR DELUSIONS. PT BRIEFLY SLOWS DOWN BUT THEN QUICKLY PICKS UP PACE AGAIN. REQUIRES FREQUENT REDIRECTION CONTINUE TO ENCOURAGE MEDICATION COMPLIANCE, CONTINUE TO REORIENT AND REDIRECT NEEDED. Q15 MIN MONITORING PER POLICY
--- NOTE | 2020-01-18 12:47 | NUR ---
PT'S DAUGHTER CAME TO NURSES STATION AND STATED PT IS COMPLAINING OF BACK PAIN AND REQUESTED TYLENOL FOR PT. THIS NURSE GAVE PT PRN TYLENOL AT THIS TIME. PT UNABLE TO RATE PAIN DUE TO COGNITIVE IMAPIRMENT. WILL REASSESS PAIN LEVEL AT A LATER TIME.
--- NOTE | 2020-01-18 14:40 | NUR ---
PRN APPEARS EFFECTIVE AT THIS TIME. PT RESTING QUIETLY.
--- NOTE | 2020-01-18 16:01 | NUR ---
PM GROUP/CRAFT/MUSIC PT NOT IN ATTENDNACE BUT RESTING IN BED.
[2020-01-18 20:00] VITALS: BP 117/77
--- NOTE | 2020-01-18 22:09 | NUR ---
RESTING QUIET WITH EYES CLOSED. DID TAKE MEDICATIONS EARLIER. REFUSED 1:1 BY KEEPING EYES CLOSED. PM CARE PROVIDED BY MENTAL HEALTH WORKER. WILL MONITOR FOR CHANGES IN BEHAVIOR/MOOD AND Q 15 MINUTES AND PRN SAFETY
--- NOTE | 2020-01-19 03:57 | NUR ---
24 HR chart check completed.
[2020-01-19 07:54] VITALS: BP 118/76
--- NOTE | 2020-01-19 09:22 | NUR ---
[employer] PR[employer] OPERATOR ON UNIT TO SEE PT AT THIS TIME
--- NOTE | 2020-01-19 18:08 | NUR ---
P- PERIODS OF INCREASED ANXIETY AT TIMES, PLEASANTLY CONFUSED I- ORIENTATION, MOOD AND BEHAVIORS ASSESSED. ASSESSED PT FOR SI/HI, INTENT OR PLAN. ASSESSED PT FOR S/S HALLUCINATIONS, PARANOIA AND/OR DELUSIONS. MEDICATIONS ADMINISTERED PER PHYSICIAN'S ORDERS. ASSISTANCE WITH ADL CARE PROVIDED NEEDED. ENCOURAGED PT TO ATTEND AND PARTICIPATE IN [facility] GROUPS AND ACTIVITIES. R- PT IS ALERT TO SELF, OTHERWISE PLEASANTLY CONFUSED. MEMORY GAPS NOTED. MOOD STABLE WITH PERIODS OF INCREASED ANXIETY NOTED. PT AMBULATING ABOUT THE UNIT IN MERRY WALKER WITH INTERMITTENT REST PERIODS IN BED THROUGHOUT THE DAY. PT APPEARS TO BE INCREASINGLY ANXIOUS WHEN A REST PERIOD IS NEEDED. PT IS PLEASANT AND COOPERATIVE WITH CARE, NO AGGRESSIVE BEHAVIORS, MED COMPLIANT WITHOUT DIFFICULTY. PT DENIES SI/HI, INTENT OR PLAN. PT DENIES HALLUCINATIONS, NO RESPONSE TO INTERNAL STIMULI NOTED. NO PARANOIA OR DELUSIONS NOTED. NO DISTRESS NOTED. P- PLAN TO CONTINUE CURRENT TREATMENT, CONTINUE TO MONITOR MOOD AND BEHAVIORS, PROVIDE APPROPRIATE REORIENTATION, REDIRECTION AND 1:1 NEEDED. CONTINUE TO ENCOURAGE MEDICATION COMPLIANCE WELL GROUP ATTENDANCE AND PARTICIPATION.
[2020-01-19 20:00] VITALS: BP 115/67; BP 138/63
--- NOTE | 2020-01-19 20:29 | NUR ---
PLEASENT AND INTERACTIVE WITH STAFF WHEN APPROACHED. MEDICATION COMPLIANT. MOVES FAST AND STEADY IN [facility]. REPORTED SHE WAS TIRED AND READY FOR BED. TO BED WITH ASSIST OF ONE. WILL CONTINUE TO MONITOR FOR CHANGES IN BEHAVIOR/MOOD AND Q15 MINUTES AND PRN FOR SAFETY
--- NOTE | 2020-01-20 00:40 | NUR ---
24 HR chart check completed.
--- NOTE | 2020-01-20 05:45 | NUR ---
SLEPT WELL WITH A FEW AWAKENINGS TO VOID AND CHECK TIME
[2020-01-20 08:00] VITALS: BP 112/68
[2020-01-20] MEDS ORDERED: ARICEPT10 M1 PO (08:26)
[2020-01-20] MEDS ORDERED: ATARAX,VISTARIL10 MG PO ×2 (08:26)
[2020-01-20] MEDS ORDERED: MEMANTINE HCL10 MG PO (08:26)
--- NOTE | 2020-01-20 08:30 | NUR ---
TREATMENT PLAN MEETING WAS HELD WITH DR. CHAPA, LETHA CAMARA, RN, AT, [employer]. PLAN FOR DISCHARGE TODAY WITH RETURN TO THE [facility] AT [facility].
--- NOTE | 2020-01-20 09:59 | NUR ---
Left a message for Soledad at [facility] at [address] requesting a return call to discuss the use of a merrywalker for pt upond return. Also, informed Aundrea there that pt is to return today.
--- NOTE | 2020-01-20 11:30 | NUR ---
SPOKE WITH FRANCISCO THE NURSE AT THE [facility] AT [facility]. ADVISED OF DISCHARGE AND ACUTE CARE REGISTERED NURSE TIME OF 2:00 P.M. [facility] TO TRANSPORT.
--- NOTE | 2020-01-20 11:31 | NUR ---
DISCHARGE PAPERWORK FAXED TO THE [facility] AT [address].
--- NOTE | 2020-01-20 11:40 | NUR ---
AM GROUP PT DID NOT ATTEND MORNING GROUP THERAPY.PT WAS PROPELLING SELF AROUND THE [facility] PT IS SET TO BE DISCHARGED FROM THE UNIT TODAY
--- NOTE | 2020-01-20 14:07 | NUR ---
NURSE TO NURSE REPORT GIVEN TO PATY AT [facility] AT [address] LIFE TEAM HERE AT 1402. PATIENT ASSISTED TO [facility]VIN. ALL BELONGING GATHERED, 2 RIGHTS SENT WITH PATIENT WITH DISCHARGE INSTRUCTIONS OFF UNIT.
--- NOTE | 2020-01-20 14:26 | NUR ---
Spoke with Soledad at The [facility] at [facility] and learned that a merry walker for pt will not be accepted there. Phoned pt's daughter Dannielle Mott and informed her of this.
--- NOTE | 2020-01-20 14:27 | NUR ---
Patient discharged today returning to The [facility] at [facility]. Follow-up will be with Dr Apollo Benjamin, visiting psychiatrist. While at [facility], pt's behaviors improved and her anxiety decreased. Pt remained pleasantly confused at time of discharge.
== END 2020-01-20 14:06 | disposition home or self-care (01) | DRG 883 ==
LOC: 3N 19:25
PROVIDERS: Counselor Professional; Internal Medicine; Registered Nurse; ADMIT Psychiatry & Neurology Psychiatry
DX: F63.81 Intermittent explosive disorder (principal); F02.81 Dementia in other diseases classified elsewhere, unspecified severity, with behavioral disturbance; G30.9 Alzheimer's disease, unspecified; R73.9 Hyperglycemia, unspecified; F32.9 Major depressive disorder, single episode, unspecified; E87.8 Other disorders of electrolyte and fluid balance, not elsewhere classified; E55.9 Vitamin D deficiency, unspecified; H40.9 Unspecified glaucoma; K21.9 Gastro-esophageal reflux disease without esophagitis; I10 Essential (primary) hypertension; E03.9 Hypothyroidism, unspecified; Z88.5 Allergy status to narcotic agent; Z88.8 Allergy status to other drugs, medicaments and biological substances; Z91.041 Radiographic dye allergy status; Z79.899 Other long term (current) drug therapy